=== PATIENT | female | born 1995 | race Hispanic/Latino ===

== ENCOUNTER 2019-03-28 00:08 | Emergency (ER) | payer OTHER ==
[2019-03-28 01:08] LABS: Absolute Lymphocytes (CBC) 3.4 K/uL (0.7-4.9); Basophils % 0.4 % (0-1.3); Hematocrit 36.3 % (36.0-45.0); Lymphocytes % 38.2 % (15.3-44.8); MPV 7.7 fL (7.6-11.3); RBC Red Blood Cell Count 3.89 M/uL (3.86-4.86)
[2019-03-28 01:30] LABS: BUN Blood Urea Nitrogen 11 mg/dL (7-18); Bicarbonate 26 mmol/L (21-32); Glucose Level 96 mg/dL (74-106); HCG, Quantitative 5800 mIU/mL (1-3); Potassium 3.5 mmol/L (3.5-5.1); Sodium Level 140 mmol/L (136-145)
--- NOTE | 2019-03-28 03:26 | ER ---
Nurse's Notes [facility] Name: Eugenia Turner Age: 23 yrs Sex: Female : 1995 Arrival Date: 03/28/2019 Time: 00:11 Bed 2 Private MD: Diagnosis: Threatened Presentation: 03/28 00:10 Presenting complaint: Patient states: Reports she started bleeding around 1 PM color ea was light, pt reports she tried contacting her OB at [facility] but was unable to, reported symptoms worsened and she started cramping and bleeding heavier dark red with clots. Transition of care: patient was not received from another setting of care. Onset of symptoms was March 28, 2019. Risk Assessment: Do you want to hurt yourself or someone else? Patient reports no desire to harm self or others. Initial Sepsis Screen: Does the patient meet any 2 criteria? No. Patient's initial sepsis screen is negative. Does the patient have a suspected source of infection? No. Patient's initial sepsis screen is negative. Care prior to arrival: None. 00:10 Method Of Arrival: Ambulatory ea 00:10 Acuity: CHHAYA 3 ea Triage Assessment: 00:10 General: Appears in no apparent distress. Behavior is calm, cooperative, appropriate ea for age. Pain: Complains of pain in pelvis. Neuro: Level of Consciousness is awake, alert, obeys commands, Oriented to person, place, time, situation. Respiratory: Airway is patent Respiratory effort is even, unlabored, Respiratory pattern is regular, symmetrical. : Reports vaginal bleeding that is bright red, with clots, moderate flow. Derm: Skin is pink, warm \T\ dry. 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 - Social history:: Smoking status: Patient/guardian denies using tobacco. - Ebola Screening: : No symptoms or risks identified at this time. Screenin:10 Abuse screen: Denies threats or abuse. Nutritional screening: No deficits noted. ea Tuberculosis screening: No symptoms or risk factors identified. Fall Risk None identified. Assessment: 00:10 Obstetrical Assessment: General assessment: awake and alert, skin warm and dry, ea respirations even and unlabored, Patient reports abdominal cramping. Neuro: Level of Consciousness is awake, alert, obeys commands, Oriented to person, place, time, situation. Cardiovascular: Patient's skin is warm and dry. Respiratory: Airway is patent Respiratory effort is even, unlabored, Respiratory pattern is regular, symmetrical. : Reports vaginal bleeding that is bright red, with clots, moderate flow. Derm: Skin is pink, warm \T\ dry. 01:34 Reassessment: Patient and/or family updated on plan of care and expected duration. Pain ea level reassessed. Patient is alert, oriented x 3, equal unlabored respirations, skin warm/dry/pink. 02:01 Reassessment: Patient and/or family updated on plan of care and expected duration. Pain ea level reassessed. Patient is alert, oriented x 3, equal unlabored respirations, skin warm/dry/pink. Awaiting on ultrasound. 02:38 Reassessment: Patient and/or family updated on plan of care and expected duration. Pain ea level reassessed. Patient is alert, oriented x 3, equal unlabored respirations, skin warm/dry/pink. Ultrasound at bedside. 02:48 Reassessment: Patient and/or family updated on plan of care and expected duration. Pain ea level reassessed. Patient is alert, oriented x 3, equal unlabored respirations, skin warm/dry/pink. Awaiting on ultrasound results. 03:33 Reassessment: Patient and/or family updated on plan of care and expected duration. Pain ea level reassessed. Patient is alert, oriented x 3, equal unlabored respirations, skin warm/dry/pink. Discharge instruction given to patient, verbalized the understanding of instruction. Pt left ED ambulatory tolerating well. Vital Signs: 00:10 BP 113 / 86; Pulse 90; Resp 18; Temp 97.8; Pulse Ox 100% on R/A; ea 01:12 BP 109 / 74; Pulse 71; Resp 18; Pulse Ox 100% on R/A; ea 01:37 Pulse 73; Resp 18; Pulse Ox 100% ; ea 01:39 BP 106 / 71; ea 02:49 BP 101 / 69; Pulse 65; Resp 18; Temp 97.7; Pulse Ox 100% ; ea 03:30 BP 108 / 78; Pulse 62; Resp 18; Pulse Ox 98% on R/A; ea Vitals: 00:31 Heart Tones: Doppler was used to obtain heart tones of 134 beats per jb5 minute, tones were found in the upper, left of the pelvis. ED Course: 00:10 Arm band placed on right wrist. Patient placed in an exam room, on a stretcher, on ea pulse oximetry. 00:10 Patient has correct armband on for positive identification. Bed in low position. Call ea light in reach. Side rails up X2. 00:11 Patient arrived in ED. ds1 00:16 Ashley Ramirez RN is Primary Nurse. ea 00:22 Juan Bella MD is Attending Physician. tw4 00:44 Abo/rh Typing Sent. jb5 00:44 Basic Metabolic Panel Sent. jb5 00:44 CBC with Diff Sent. jb5 00:44 HCG, Quantitative Sent. jb5 00:44 Inserted saline lock: 20 gauge in left antecubital area, using aseptic technique. Blood jb5 collected. 01:05 Triage completed. ea 02:42 1St Trimest Single 1St Fetus In Process Unspecified. EDMS 03:03 Assist provider with pelvic exam: Set up pelvic tray. Performed by Juan Bella MD jb5 Patient tolerated well. 03:30 IV discontinued, intact, bleeding controlled, No redness/swelling at site. Pressure ea dressing applied. Administered Medications: No medications were administered Outcome: 03:26 Discharge ordered by . tw4 03:33 Discharged to home ambulatory. ea 03:33 Condition: stable 03:33 Discharge instructions given to patient, Instructed on discharge instructions, follow up and referral plans. Demonstrated understanding of instructions, follow-up care. 03:35 Patient left the ED. ea Signatures: Dispatcher [employer] EDNC Martha Tolbert ds1 Ayesha Lai jb5 Ashley Ramirez, QUINTON RN Juan Jones MD MD tw4
--- NOTE | 2019-03-28 03:27 | EDPHYS ---
Physician Documentation [facility] Name: Eugenia Turner Age: 23 yrs Sex: Female : 1995 Arrival Date: 03/28/2019 Time: 00:11 Bed 2 Private MD: ED Physician Juan Bella HPI: 03/28 00:29 This 23 yrs old Female presents to ER via Unassigned with complaints of tw4 Vaginal Bleeding, + Preg <12wks. 00:29 The patient presents to the emergency department with vaginal bleeding, that is tw4 moderate, described as spotting, with clots. The estimated gestational age is 11 weeks. course: care: at a clinic, Leakage of Fluid: none appreciated, Ultrasound: Risk/complications: no obvious risks or complications are appreciated. Previous pregnancies: in previous pregnancies patient has had vaginal delivery. Associated signs and symptoms: Pertinent positives: abdominal pain, Pertinent negatives:. The patient has not experienced similar symptoms in the past. 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 - Social history:: Smoking status: Patient/guardian denies using tobacco. - Ebola Screening: : No symptoms or risks identified at this time. ROS: 00:29 Constitutional: Negative for fever, chills, and weight loss, Eyes: Negative for injury, tw4 pain, redness, and discharge, Cardiovascular: Negative for chest pain, palpitations, and edema, Respiratory: Negative for shortness of breath, cough, wheezing, and pleuritic chest pain, Abdomen/GI: Negative for abdominal pain, nausea, vomiting, diarrhea, and constipation, Back: Negative for injury and pain, MS/Extremity: Negative for injury and deformity, Skin: Negative for injury, rash, and discoloration. 00:29 : Positive for pelvic pain, vaginal bleeding, Negative for urinary symptoms, urinary frequency, small amounts, hematuria, flank pain, burning with urination, difficulty urinating, bladder incontinence, foul smelling urine. Exam: 05:12 Constitutional: This is a well developed, well nourished patient who is awake, alert, tw4 and in no acute distress. Head/Face: Normocephalic, atraumatic. Chest/axilla: Normal chest wall appearance and motion. Nontender with no deformity. No lesions are appreciated. Cardiovascular: Regular rate and rhythm with a normal S1 and S2. No gallops, murmurs, or rubs. Normal PMI, no JVD. No pulse deficits. Respiratory: Lungs have equal breath sounds bilaterally, clear to auscultation and percussion. No rales, rhonchi or wheezes noted. No increased work of breathing, no retractions or nasal flaring. Abdomen/GI: Soft, non-tender, with normal bowel sounds. No distension or tympany. No guarding or rebound. No evidence of tenderness throughout. Back: No spinal tenderness. No costovertebral tenderness. Full range of motion. 05:12 : Pelvic Exam: External exam: is normal, Speculum exam: mild bleeding, no cervicitis, os that is closed. Vital Signs: 00:10 BP 113 / 86; Pulse 90; Resp 18; Temp 97.8; Pulse Ox 100% on R/A; ea 01:12 BP 109 / 74; Pulse 71; Resp 18; Pulse Ox 100% on R/A; ea 01:37 Pulse 73; Resp 18; Pulse Ox 100% ; ea 01:39 BP 106 / 71; ea 02:49 BP 101 / 69; Pulse 65; Resp 18; Temp 97.7; Pulse Ox 100% ; ea 03:30 BP 108 / 78; Pulse 62; Resp 18; Pulse Ox 98% on R/A; ea MDM: 00:22 Patient medically screened. tw4 05:12 Data reviewed: vital signs, nurses notes. Data reviewed: lab test result(s), CBC, white tw4 blood cell count, hemoglobin, hematocrit, platelets, urinalysis. 05:12 Differential diagnosis: threatened Ab, inevitable Ab, complete Ab, ectopic . tw4 Data reviewed: lab test result(s), electrolytes, sodium, potassium, chloride, serum bicarbonate, BUN, creatinine, serum glucose, Rh: positive. Data reviewed: radiologic studies, ultrasound. Data interpreted: Pulse oximetry: Interpretation: normal. Counseling: I had a detailed discussion with the patient and/or guardian regarding: the historical points, exam findings, and any diagnostic results supporting the discharge/admit diagnosis, lab results, radiology results. Special discussion: I discussed with the patient/guardian in detail that at this point there is no indication for admission to the hospital. It is understood, however, that if the symptoms persist or worsen the patient needs to return immediately for re-evaluation. Based on the history and exam findings, there is no indication for further emergent testing or inpatient evaluation. I discussed with the patient/guardian the need to see the OB Gyne specialist for further evaluation of the symptoms. 03/28 00:22 Order name: Quantitative Hcg tw4 03/28 00:22 Order name: Abo/rh Typing; Complete Time: 05:12 tw4 03/28 05:12 Interpretation: Within normal limits. tw4 03/28 00:22 Order name: Basic Metabolic Panel tw4 03/28 00:22 Order name: CBC with Diff tw4 03/28 00:23 Order name: HCG, Quantitative EDMS 03/28 00:22 Order name: IV Saline Lock; Complete Time: 00:44 tw4 03/28 00:22 Order name: Labs collected and sent; Complete Time: 00:44 tw4 03/28 00:22 Order name: NPO; Complete Time: 01:17 tw4 03/28 02:42 Order name: 1St Trimest Single 1St Fetus EDNC Administered Medications: No medications were administered Disposition: 05:18 Chart complete. tw Disposition: 03/28/19 03:26 Discharged to Home. Impression: Threatened . - Condition is Stable. - Discharge Instructions: Threatened Miscarriage, First Trimester of , Threatened Miscarriage, [id number]. - Medication Reconciliation Form, Thank You Letter, Antibiotic Education, Prescription Opioid Use form. - Follow up: Private Physician; When: Upon discharge from the Emergency Department; Reason: Recheck today's complaints, Continuance of care. - Problem is new. - Symptoms have improved. Signatures: Dispatcher [employer] EDMS Ashley Ramirez RN RN ea Wadley, Terrence, MD MD tw4 Corrections: (The following items were deleted from the chart) 02:42 01:11 OB Limited+US.RAD[facility]. [facility] 03:35 03:26 03/28/2019 03:26 Discharged to Home. Impression: Threatened . Condition ea is Stable. Forms are Medication Reconciliation Form, Thank You Letter, Antibiotic Education, Prescription Opioid Use. Follow up: Private Physician; When: Upon discharge from the Emergency Department; Reason: Recheck today's complaints, Continuance of care. Problem is new. Symptoms have improved. tw4
[2019-03-28 06:07] VITALS: TEMP 97.7
[2019-03-28 06:08] VITALS: BP 108/78; O2SAT 98
--- NOTE | 2019-03-28 07:13 | RAD REPORT ---
EXAM DESCRIPTION: US - 1St Trimest Single 1St Fetus - 03/28/2019 2:42 am CLINICAL HISTORY: VAGINAL BLEEDING, , possible ectopic , pelvic pain, beta HCG 580 0 COMPARISON: None. TECHNIQUE: Transabdominal sonography performed FINDINGS: Preliminary findings from the examination were provided at the time of the study. A normal shaped gestational sac is identified in the fundal portion of the endometrial cavity. The yolk sac i s identified. There is no pole visible. No intrauterine mass or hematoma. Uterus is normal size with no myometrial abnormality. Both ovaries are visualized and normal in size. There is no adnexal mass or other finding that would indicate ectopic . No fluid or blood in the cul-de-sac. IMPRESSION: Intrauterine gestational sac with yolk sac. No pole at this time. No adnexal abnormality to suspect ectopic . Follow-up sonography can be performed if beta HCG values continue to rise. .
== END 2019-03-28 03:35 | disposition home or self-care (01) ==
LOC: ER 00:08
DX: O20.0 Threatened abortion (principal); Z3A.11 11 weeks gestation of pregnancy
CPT/HCPCS: 36415; 76801; 80048; 84702; 85025; 86900; 86901; 99284

== ENCOUNTER 2019-03-30 07:57 | Emergency (ER) | payer OTHER ==
--- OUTSIDE RECORDS SUMMARY | 2019-03-30 07:59 | XMS REPORT ---
:1995 [facility] Address [address] [place] [address] Dr. Sellers [address] [place] [id number] Care Team Providers Name Role Phone Unavailable Unavailable Unavailable Problems This patient has no known problems. Allergies, Adverse Reactions, Alerts This patient has no known allergies or adverse reactions. Medications This patient has no known medications.
[2019-03-30] MEDS ORDERED: ONDANSETRON 4 MG/2 ML VIAL ONE (08:26)
[2019-03-30] MEDS ORDERED: NA CHLORIDE 0.9% 1,000 ML ONE ×2 (08:26→09:00)
[2019-03-30] MEDS ORDERED: FENTANYL CITR 100 MCG/2 ML ONE (08:36)
[2019-03-30 08:56] LABS: Absolute Lymphocytes (CBC) 3.5 K/uL (0.7-4.9); Basophils % 0.3 % (0-1.3); Hematocrit 35.6 % (36.0-45.0); Lymphocytes % 36.1 % (15.3-44.8); MPV 7.6 fL (7.6-11.3); RBC Red Blood Cell Count 3.84 M/uL (3.86-4.86)
[2019-03-30 09:37] LABS: BUN Blood Urea Nitrogen 9 mg/dL (7-18); Bicarbonate 24 mmol/L (21-32); Glucose Level 108 mg/dL (74-106); HCG, Quantitative 3516 mIU/mL (1-3); Potassium 3.7 mmol/L (3.5-5.1); Sodium Level 138 mmol/L (136-145)
--- NOTE | 2019-03-30 12:09 | EDPHYS ---
Physician Documentation [facility] Name: Eugenia Turner Age: 23 yrs Sex: Female : 1995 Arrival Date: 03/30/2019 Time: 07:59 Bed 20 Private MD: ED Physician Geovany Hough HPI: 03/30 08:12 This 23 yrs old Female presents to ER via Ambulatory with complaints of jmm Vaginal Bleeding. 08:12 The patient presents with vaginal bleeding that is heavy, with clots. Onset: The jmm symptoms/episode began/occurred gradually, 2 day(s) ago. Modifying factors: The symptoms are alleviated by nothing, the symptoms are aggravated by nothing. This is a 23 year old female with no chronic medical conditions that presents to the ED with heavy vaginal bleeding and passing clots. Patient was diagnosed with threatened two days prior. Bleeding has increased. Patient also complains of pelvic pain. . 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 - Social history:: Smoking status: Patient/guardian denies using tobacco. - Ebola Screening: : Patient negative for fever greater than or equal to 101.5 degrees Fahrenheit, and additional compatible Ebola Virus Disease symptoms Patient denies exposure to infectious person Patient denies travel to an Ebola-affected area in the 21 days before illness onset No symptoms or risks identified at this time. ROS: 08:12 Constitutional: Negative for fever, chills, and weight loss, Cardiovascular: Negative jmm for chest pain, palpitations, and edema, Respiratory: Negative for shortness of breath, cough, wheezing, and pleuritic chest pain, Abdomen/GI: Negative for abdominal pain, nausea, vomiting, diarrhea, and constipation. 08:12 : Positive for vaginal bleeding. 08:12 All other systems are negative. Exam: 08:12 Constitutional: This is a well developed, well nourished patient who is awake, alert, jmm and in no acute distress. Head/Face: atraumatic. Eyes: EOMI, no conjunctival erythema appreciated ENT: Moist Mucus Membranes Neck: Trachea midline, Supple Chest/axilla: Normal chest wall appearance and motion. Cardiovascular: Regular rate and rhythm. No edema appreciated Respiratory: Normal respirations, no respiratory distress appreciated 08:12 MS/ Extremity: Moves all extremities, no obvious deformities appreciated, no edema noted to the lower extremities Neuro: Awake and alert, normal gait Psych: Behavior is normal, Mood is normal, Patient is cooperative and pleasant 08:12 Respiratory: the patient does not display signs of respiratory distress, Respirations: normal, Breath sounds: are clear throughout. 08:12 Abdomen/GI: Inspection: abdomen appears normal, Bowel sounds: normal, Palpation: abdomen is soft and non-tender. 08:12 : Pelvic Exam: Speculum exam: mild bleeding, blood clots in vaginal vault, tissue in vagina is seen. Vital Signs: 08:09 BP 100 / 67; Pulse 108; Resp 16; Temp 98.7(O); Pulse Ox 99% on R/A; Weight 74.39 kg; em Pain 9/10; 08:28 BP 84 / 61; Pulse 66; Resp 24; Pulse Ox 100% on R/A; em 08:30 BP 89 / 62; Pulse 74; Resp 25; Pulse Ox 100% on R/A; em 08:40 BP 97 / 65; Pulse 72; Resp 17; Pulse Ox 97% on R/A; Pain 9/10; em 09:00 BP 95 / 61; Pulse 64; Resp 18; Pulse Ox 99% on R/A; Pain 0/10; em 09:32 BP 91 / 61; Pulse 67; Resp 18; Pulse Ox 99% on R/A; Pain 0/10; em 10:10 BP 99 / 72; Pulse 68; Resp 16; Pulse Ox 100% on R/A; em 10:50 BP 90 / 61 LA Supine; Pulse 76; Resp 15; Pulse Ox 100% on R/A; dh3 10:52 BP 96 / 58 LA Sitting; Pulse 91; Resp 12; Pulse Ox 100% on R/A; dh3 10:54 BP 88 / 67 Standing; Pulse 105; Resp 16; Pulse Ox 100% on R/A; dh3 11:42 BP 100 / 62; Pulse 88; Resp 18; Pulse Ox 100% on R/A; Pain 0/10; em MDM: 08:12 Patient medically screened. [facility] 12:06 Data reviewed: vital signs, nurses notes. Counseling: I had a detailed discussion with shira the patient and/or guardian regarding: the historical points, exam findings, and any diagnostic results supporting the discharge/admit diagnosis, lab results, the need for outpatient follow up, to return to the emergency department if symptoms worsen or persist or if there are any questions or concerns that arise at home. 12:06 ED course: Previous US confirmed IUP. Pain is relieved in the ED. No active bleeding jmm appreciated. Patient states feeling much better H/H wnl. Patient advised to follow up with OB for reevaluation and otherwise given strict return precautions. patient understood and agrees with the plan of care. . 03/30 08:13 Order name: Quantitative Hcg; Complete Time: 09:56 [facility] 03/30 08:13 Order name: Basic Metabolic Panel; Complete Time: 09:56 [facility] 03/30 08:13 Order name: CBC with Diff; Complete Time: 09:31 [facility] 03/30 08:27 Order name: Type And Screen; Complete Time: 09:56 [facility] 03/30 11:38 Order name: Urine Dipstick--Ancillary (enter results) or 03/30 08:13 Order name: Urine Test (obtain specimen); Complete Time: 11:36 [facility] 03/30 08:13 Order name: IV Saline Lock; Complete Time: 08:18 [facility] 03/30 08:13 Order name: Labs collected and sent; Complete Time: 08:18 [facility] 03/30 11:38 Order name: Urine --Ancillary (enter results) or 03/30 08:13 Order name: NPO; Complete Time: 08:18 [facility] 03/30 08:13 Order name: Urine Dipstick-Ancillary (obtain specimen); Complete Time: 11:36 [facility] 03/30 10:40 Order name: Pelvic Exam Setup; Complete Time: 11:02 [facility] 03/30 10:47 Order name: Orthostatic Blood Pressure; Complete Time: 10:59 [facility] Administered Medications: 08:32 Drug: NS 0.9% 1000 ml Route: IV; Rate: 1 bolus; Site: right antecubital; em 08:56 Follow up: IV Status: Completed infusion; IV Intake: 1000ml em 08:32 Drug: Zofran 4 mg Route: IVP; Site: right antecubital; iw 08:40 Follow up: Response: No adverse reaction; Nausea is decreased em 08:41 Drug: fentaNYL (PF) 25 mcg {Note: RASS 0.} Route: IVP; Site: right antecubital; iw 08:56 Follow up: Response: No adverse reaction; Pain is decreased; RASS: Alert and Calm (0) em 09:02 Drug: NS 0.9% 1000 ml Route: IV; Rate: 1 bolus; Site: right antecubital; em 10:09 Follow up: IV Status: Completed infusion; IV Intake: 1000ml em Disposition: 16:39 Co-signature as Attending Physician, Geovany Hough MD I agree with the assessment and kdr plan of care. Disposition: 03/30/19 12:08 Discharged to Home. Impression: Incomplete spontaneous without complication. - Condition is Stable. - Discharge Instructions: Incomplete Miscarriage. - Medication Reconciliation Form, Thank You Letter, Antibiotic Education, Prescription Opioid Use, Work release form, Family Work Release form. - Follow up: Cornel Aguilar MD; When: 2 - 3 days; Reason: Recheck today's complaints, Continuance of care, Re-evaluation by your physician. Signatures: Dispatcher [employer] [facility] Geovany Hough MD MD kdr Mickail, Joel, PA PA [facility] Troy Kelly, FRETTED INSTRUMENT INSPECTOR FRETTED INSTRUMENT INSPECTOR em Alesha Sol, QUINTON RN iw Corrections: (The following items were deleted from the chart) 09:14 08:14 ABO/RH TYPING+BB.LAB.BRZ ordered. [facility] 12:21 12:08 03/30/2019 12:08 Discharged to Home. Impression: Incomplete spontaneous em without complication. Condition is Stable. Forms are Medication Reconciliation Form, Thank You Letter, Antibiotic Education, Prescription Opioid Use. Follow up: Cornel Aguilar; When: 2 - 3 days; Reason: Recheck today's complaints, Continuance of care, Re-evaluation by your physician. shira
--- NOTE | 2019-03-30 12:09 | ER ---
Nurse's Notes [facility] Name: Eugenia Turner Age: 23 yrs Sex: Female : 1995 Arrival Date: 03/30/2019 Time: 07:59 Bed 20 Private MD: Diagnosis: Incomplete spontaneous without complication Presentation: 03/30 08:06 Presenting complaint: Patient states: vaginal bleeding that started as spotting on em Monday, reports being 11 weeks , today started bleeding more with blood clots that were orange/brown, had US done yesterday and was told she was about 7 weeks gestation, denies fever, N/V. Transition of care: patient was not received from another setting of care. Onset of symptoms was March 27, 2019. Risk Assessment: Do you want to hurt yourself or someone else? Patient reports no desire to harm self or others. Initial Sepsis Screen: Does the patient meet any 2 criteria? No. Patient's initial sepsis screen is negative. Does the patient have a suspected source of infection? No. Patient's initial sepsis screen is negative. Care prior to arrival: None. 08:06 Method Of Arrival: Ambulatory em 08:12 Acuity: CHHAYA 3 iw 08:34 Acuity: CHHAYA 2 iw DISH UP PERSON: 08:09 LMP 12/07/2018 em 08:12 2, Living 1 [facility] Historical: - Allergies: 08:09 No Known Allergies; em - Home Meds: 08:09 Vitamin Oral [Active]; em - PMHx: 08:09 None; em - PSHx: 08:09 None; em - Immunization history:: Adult Immunizations up to date. - Social history:: Smoking status: Patient/guardian denies using tobacco. - Ebola Screening: : Patient negative for fever greater than or equal to 101.5 degrees Fahrenheit, and additional compatible Ebola Virus Disease symptoms Patient denies exposure to infectious person Patient denies travel to an Ebola-affected area in the 21 days before illness onset No symptoms or risks identified at this time. Screenin:08 Abuse screen: Denies threats or abuse. Nutritional screening: No deficits noted. em Tuberculosis screening: No symptoms or risk factors identified. Fall Risk None identified. Assessment: 08:08 General: Appears in no apparent distress. uncomfortable, well groomed, well developed, em well nourished, Behavior is cooperative, anxious, Denies fever. Pain: Complains of pain in suprapubic area Pain currently is 9 out of 10 on a pain scale. Pain began 2-3 days ago. Neuro: Level of Consciousness is awake, alert, obeys commands, Oriented to person, place, time, situation, Appropriate for age. Cardiovascular: Capillary refill < 3 seconds Patient's skin is warm and dry. Respiratory: Airway is patent Respiratory effort is even, unlabored, Respiratory pattern is regular, symmetrical. GI: Abdomen is flat, Patient currently denies nausea, vomiting. : Blood noted Reports pain in suprapubic area vaginal bleeding that is brown, with clots, since Monday Denies burning with urination. Derm: Skin is intact, is healthy with good turgor, Skin is pink, warm \T\ dry. Musculoskeletal: Capillary refill < 3 seconds, Range of motion: intact in all extremities. 08:24 Reassessment: became nauseous, clammy and diaphoretic, BP dropped to 80s systolic, em provider notified, new medication orders received. 08:40 Reassessment: nausea has improved, reports feeling better. em 09:00 Reassessment: Patient appears in no apparent distress at this time. Patient and/or em family updated on plan of care and expected duration. Pain level reassessed. Patient denies pain at this time. Patient states feeling better. Patient states symptoms have improved. 09:32 Reassessment: Patient appears in no apparent distress at this time. Patient and/or em family updated on plan of care and expected duration. Pain level reassessed. Patient is alert, oriented x 3, equal unlabored respirations, skin warm/dry/pink. Patient denies pain at this time. Patient states feeling better. 10:11 Reassessment: Patient appears in no apparent distress at this time. Patient and/or em family updated on plan of care and expected duration. Pain level reassessed. Patient is alert, oriented x 3, equal unlabored respirations, skin warm/dry/pink. Patient denies pain at this time. 11:15 Reassessment: Patient appears in no apparent distress at this time. Patient and/or em family updated on plan of care and expected duration. Pain level reassessed. Patient is alert, oriented x 3, equal unlabored respirations, skin warm/dry/pink. 11:30 Reassessment: ambulated to restroom with steady gait, denies dizziness, rechecked BP em after giving UA, BP 100/62, HR 88. Vital Signs: 08:09 BP 100 / 67; Pulse 108; Resp 16; Temp 98.7(O); Pulse Ox 99% on R/A; Weight 74.39 kg; em Pain 9/10; 08:28 BP 84 / 61; Pulse 66; Resp 24; Pulse Ox 100% on R/A; em 08:30 BP 89 / 62; Pulse 74; Resp 25; Pulse Ox 100% on R/A; em 08:40 BP 97 / 65; Pulse 72; Resp 17; Pulse Ox 97% on R/A; Pain 9/10; em 09:00 BP 95 / 61; Pulse 64; Resp 18; Pulse Ox 99% on R/A; Pain 0/10; em 09:32 BP 91 / 61; Pulse 67; Resp 18; Pulse Ox 99% on R/A; Pain 0/10; em 10:10 BP 99 / 72; Pulse 68; Resp 16; Pulse Ox 100% on R/A; em 10:50 BP 90 / 61 LA Supine; Pulse 76; Resp 15; Pulse Ox 100% on R/A; dh3 10:52 BP 96 / 58 LA Sitting; Pulse 91; Resp 12; Pulse Ox 100% on R/A; dh3 10:54 BP 88 / 67 Standing; Pulse 105; Resp 16; Pulse Ox 100% on R/A; dh3 11:42 BP 100 / 62; Pulse 88; Resp 18; Pulse Ox 100% on R/A; Pain 0/10; em ED Course: 07:59 Patient arrived in ED. mr 08:03 Ever Kelley PA is PHCP. jmm 08:03 Geovany Hough MD is Attending Physician. jmm 08:06 Troy Kelly LVN is Primary Nurse. em 08:08 Patient has correct armband on for positive identification. Placed in gown. Bed in low em position. Call light in reach. Pulse ox on. NIBP on. 08:09 Arm band placed on. em 08:12 Triage completed. iw 08:24 Inserted saline lock: 20 gauge in right antecubital area, using aseptic technique. em Blood collected. 08:24 Initial lab(s) drawn, by me, sent to lab. em 12:08 Cornel Aguilar MD is Referral Physician. [facility] 12:17 Assist provider with pelvic exam: Set up pelvic tray. Performed by Ever MCKEON em Specimens sent to lab. POC passed, sent to pathology, Patient tolerated well. IV discontinued, intact, bleeding controlled, No redness/swelling at site. Pressure dressing applied. Administered Medications: 08:32 Drug: NS 0.9% 1000 ml Route: IV; Rate: 1 bolus; Site: right antecubital; em 08:56 Follow up: IV Status: Completed infusion; IV Intake: 1000ml em 08:32 Drug: Zofran 4 mg Route: IVP; Site: right antecubital; iw 08:40 Follow up: Response: No adverse reaction; Nausea is decreased em 08:41 Drug: fentaNYL (PF) 25 mcg {Note: RASS 0.} Route: IVP; Site: right antecubital; iw 08:56 Follow up: Response: No adverse reaction; Pain is decreased; RASS: Alert and Calm (0) em 09:02 Drug: NS 0.9% 1000 ml Route: IV; Rate: 1 bolus; Site: right antecubital; em 10:09 Follow up: IV Status: Completed infusion; IV Intake: 1000ml em Intake: 08:56 IV: 1000ml; Total: 1000ml. em 10:09 IV: 1000ml; Total: 2000ml. em Outcome: 12:08 Discharge ordered by . m 12:20 Discharged to home ambulatory, with family. em 12:20 Condition: good 12:20 Discharge instructions given to patient, Instructed on discharge instructions, follow up and referral plans. Demonstrated understanding of instructions, follow-up care. 12:21 Patient left the ED. em Signatures: Ever Kelley PA PA jmm Rivera, Mary Robin, Troy, ACTIVITY LEADER ACTIVITY LEADER em Alesha Sol, QUINTON RN Zhane Dunbar [facility] Corrections: (The following items were deleted from the chart) 12:18 12:17 No provider procedures requiring assistance completed. em em 12:19 12:17 Assist provider with pelvic exam: Set up pelvic tray. Performed by Ever polk PA Specimens sent to lab. POC passed, sent to pathology, Patient tolerated well. em
[2019-03-30 12:35] LABS: Urine Blood 1+ (NEG); Urine Glucose NEGATIVE (NEG); Urine Protein NEGATIVE (NEG); Urine Specific Gravity 1.015 (1.005-1.030); Urine pH 6.5 (5.0-7.0)
[2019-03-30 12:37] VITALS: TEMP 98.7
[2019-03-30 12:45] VITALS: O2SAT 100
[2019-03-30 12:50] VITALS: BP 100/62
== END 2019-03-30 12:21 | disposition home or self-care (01) ==
LOC: ER 07:57
DX: O03.4 Incomplete spontaneous abortion without complication (principal)
CPT/HCPCS: 96361; 85025; 80048; 36415; 86900; 86850; 81025; 86901; 88305 ×2; 84702; 81003; 96375; 96374; 99284; J3010; J7030 ×2; J2405

== ENCOUNTER 2019-07-07 01:19 | Emergency (ER) | payer OTHER, SELFPAY ==
--- OUTSIDE RECORDS SUMMARY | 2019-07-07 01:22 | XMS REPORT ---
:1995 [facility] Address [address] [place] [address] Dr. Sellers [address] [place] [id number] Care Team Providers Name Role Phone Unavailable Unavailable Unavailable Problems This patient has no known problems. Allergies, Adverse Reactions, Alerts This patient has no known allergies or adverse reactions. Medications This patient has no known medications.
[2019-07-07] MEDS ORDERED: ONDANSETRON 4 MG/2 ML VIAL ONE (01:41)
[2019-07-07] MEDS ORDERED: NA CHLORIDE 0.9% 1,000 ML ONE (01:41)
[2019-07-07 02:08] LABS: Absolute Lymphocytes (CBC) 3.4 K/uL (0.7-4.9); Basophils % 0.4 % (0-1.3); Hematocrit 37.6 % (36.0-45.0); Lymphocytes % 38.8 % (15.3-44.8); MPV 7.6 fL (7.6-11.3); RBC Red Blood Cell Count 4.25 M/uL (3.86-4.86)
[2019-07-07 02:22] LABS: ALT/SGPT 16 U/L (12-78); AST/SGOT 11 U/L (15-37); Alkaline Phosphatase 102 U/L (45-117); BUN Blood Urea Nitrogen 12 mg/dL (7-18); Bicarbonate 25 mmol/L (21-32); Bilirubin Direct < 0.1 mg/dL (0-0.2); Bilirubin Total 0.2 mg/dL (0.2-1.0); Glucose Level 120 mg/dL (74-106); Lipase 109 U/L (73-393); Protein, Total 8.4 g/dL (6.4-8.2); Sodium Level 139 mmol/L (136-145)
[2019-07-07] MEDS ORDERED: NS KCL 20MEQ 1,000 ML IV ONE (02:49)
--- NOTE | 2019-07-07 05:57 | ER ---
Nurse's Notes [facility] Name: Eugenia Turner Age: 23 yrs Sex: Female : 1995 Arrival Date: 07/07/2019 Time: 01:22 Bed 6 Private MD: Diagnosis: Vomiting;Dehydration Presentation: 07/06 01:36 Chief complaint: Patient states: she started feeling weak, shaking, vomiting, denies bb fever. Coronavirus screen: The patient has NOT traveled to [place] in the past 14 days. Proceed with normal triage procedures. Ebola Screen: No symptoms or risks identified at this time. Initial Sepsis Screen: Does the patient meet any 2 criteria? No. Patient's initial sepsis screen is negative. Does the patient have a suspected source of infection? No. Patient's initial sepsis screen is negative. Risk Assessment: Do you want to hurt yourself or someone else? Patient reports no desire to harm self or others. 01:36 Method Of Arrival: Ambulatory bb 01:36 Acuity: CHHAYA 3 bb 01:47 Onset of symptoms was July 06, 2019. mg2 Triage Assessment: 01:59 General: Appears in no apparent distress. comfortable. Pain: Denies pain. GI: Reports mg2 vomiting. 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 - Social history:: Smoking status: Patient denies any tobacco usage or history of. Screenin:47 Abuse screen: Denies threats or abuse. Denies injuries from another. Nutritional mg2 screening: No deficits noted. Tuberculosis screening: No symptoms or risk factors identified. Fall Risk IV access (20 points). Assessment: 01:46 General: Appears in no apparent distress. comfortable, Behavior is calm, cooperative. mg2 Neuro: Level of Consciousness is awake, alert, obeys commands, Oriented to person, place, time, situation. Cardiovascular: Capillary refill < 3 seconds Patient's skin is warm and dry. Respiratory: Airway is patent Respiratory effort is even, unlabored, Respiratory pattern is regular, symmetrical. GI: Abdomen is non-distended, Reports vomiting. : No signs and/or symptoms were reported regarding the genitourinary system. EENT: No signs and/or symptoms were reported regarding the EENT system. Derm: Skin is intact, is healthy with good turgor, Skin is pink, warm \T\ dry. normal. Musculoskeletal: Circulation, motion, and sensation intact. Capillary refill < 3 seconds. 02:48 Reassessment: Patient appears in no apparent distress at this time. Patient and/or mg2 family updated on plan of care and expected duration. Pain level reassessed. Patient is alert, oriented x 3, equal unlabored respirations, skin warm/dry/pink. 03:58 Reassessment: Patient appears in no apparent distress at this time. Patient and/or mg2 family updated on plan of care and expected duration. Pain level reassessed. Patient is alert, oriented x 3, equal unlabored respirations, skin warm/dry/pink. 05:29 Reassessment: Patient appears in no apparent distress at this time. Patient denies pain mg2 at this time. Patient states feeling better. 06:02 Reassessment: Patient appears in no apparent distress at this time. Patient states mg2 feeling better. Vital Signs: 01:36 BP 111 / 79; Pulse 75; Resp 16 S; Temp 98.3(O); Pulse Ox 99% on R/A; Weight 71.21 kg bb (R); Height 5 ft. 5 in. (165.10 cm) (R); Pain 0/10; 02:48 BP 101 / 70; Pulse 71; Resp 18; Temp 97.4; Pulse Ox 100% on R/A; mg2 03:58 BP 96 / 65; Pulse 75; Resp 18; Pulse Ox 98% on R/A; mg2 05:29 BP 103 / 74; Pulse 72; Resp 18; Pulse Ox 99% on R/A; mg2 01:36 Body Mass Index 26.13 (71.21 kg, 165.10 cm) bb ED Course: 01:22 Patient arrived in ED. ag3 01:24 Mendel Ruiz PA is PHCP. jr8 01:24 Juan Bella MD is Attending Physician. jr8 01:25 Shreyas Dial, QUINTON is Primary Nurse. mg2 01:38 Triage completed. bb 01:39 Arm band placed on Patient placed in an exam room, on a stretcher, on pulse oximetry. bb Family accompanied patient. 01:48 Patient has correct armband on for positive identification. Pulse ox on. NIBP on. mg2 01:48 No provider procedures requiring assistance completed. mg2 01:51 Inserted saline lock: 20 gauge in right antecubital area, using aseptic technique. oe Blood collected. 06:03 IV discontinued, intact, bleeding controlled, No redness/swelling at site. Pressure mg2 dressing applied. Administered Medications: 01:59 Drug: NS 0.9% 1000 ml Route: IV; Rate: 1000 ml; Site: right antecubital; mg2 02:48 Follow up: Response: No adverse reaction; IV Status: Completed infusion; IV Intake: mg2 1000ml 01:59 Drug: Zofran (Ondansetron) 4 mg Route: IVP; Site: right antecubital; mg2 02:47 Follow up: Response: No adverse reaction mg2 02:47 Drug: NS 0.9% with KCl 20 mEq/L 1000 ml Route: IV; Rate: 500 ml/hr; Site: right mg2 antecubital; 06:03 Follow up: Response: No adverse reaction; IV Status: Completed infusion; IV Intake: mg2 1000ml Intake: 02:48 IV: 1000ml; Total: 1000ml. mg2 06:03 IV: 1000ml; Total: 2000ml. mg2 Outcome: 05:55 Discharge ordered by . tw4 06:03 Discharged to home ambulatory, with family. mg2 06:03 Condition: stable 06:03 Discharge instructions given to patient, family, Instructed on discharge instructions, follow up and referral plans. medication usage, Demonstrated understanding of instructions, follow-up care, medications, Prescriptions given X 1. 06:04 Patient left the ED. mg2 Signatures: Jackelin Avila, RN RN bb Mendel Ruiz PA PA jr8 Sree Swenson Terrence, MD MD tw4 Shreyas Dial RN RN mg2 Ilda Humphrey 3
--- NOTE | 2019-07-07 05:57 | EDPHYS ---
Physician Documentation [facility] Name: Eugenia Turner Age: 23 yrs Sex: Female : 1995 Arrival Date: 07/07/2019 Time: 01:22 Bed 6 Private MD: ED Physician Juan Bella HPI: 07/06 02:31 This 23 yrs old Female presents to ER via Ambulatory with complaints of jr8 Vomiting, Weakness. 02:31 The patient presents to the emergency department with nausea, vomiting. Onset: The jr8 symptoms/episode began/occurred acutely, today. Possible causes: unknown. The symptoms are aggravated by nothing. The symptoms are alleviated by nothing. Associated signs and symptoms: Pertinent positives: weakness and dizziness . Severity of symptoms: At their worst the symptoms were moderate in the emergency department the symptoms are unchanged. The patient has not experienced similar symptoms in the past. The patient has not recently seen a physician. 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 - Social history:: Smoking status: Patient denies any tobacco usage or history of. ROS: 02:31 Eyes: Negative for injury, pain, redness, and discharge, ENT: Negative for injury, jr8 pain, and discharge, Neck: Negative for injury, pain, and swelling, Cardiovascular: Negative for chest pain, palpitations, and edema, Respiratory: Negative for shortness of breath, cough, wheezing, and pleuritic chest pain, Back: Negative for injury and pain, MS/Extremity: Negative for injury and deformity, Skin: Negative for injury, rash, and discoloration, Neuro: Negative for headache, weakness, numbness, tingling, and seizure. 02:31 Abdomen/GI: Positive for nausea and vomiting, Negative for abdominal pain, diarrhea, constipation, abdominal cramps, abdominal distension, anorexia, dysphagia, hematemesis, black/tarry stool, rectal pain, rectal bleeding, bowel incontinence, flatulence. Exam: 02:31 Eyes: Pupils equal round and reactive to light, extra-ocular motions intact. Lids and jr8 lashes normal. Conjunctiva and sclera are non-icteric and not injected. Cornea within normal limits. Periorbital areas with no swelling, redness, or edema. ENT: Nares patent. No nasal discharge, no septal abnormalities noted. Tympanic membranes are normal and external auditory canals are clear. Oropharynx with no redness, swelling, or masses, exudates, or evidence of obstruction, uvula midline. Mucous membranes moist. Neck: Trachea midline, no thyromegaly or masses palpated, and no cervical lymphadenopathy. Supple, full range of motion without nuchal rigidity, or vertebral point tenderness. No Meningismus. Cardiovascular: Regular rate and rhythm with a normal S1 and S2. No gallops, murmurs, or rubs. Normal PMI, no JVD. No pulse deficits. Respiratory: Lungs have equal breath sounds bilaterally, clear to auscultation and percussion. No rales, rhonchi or wheezes noted. No increased work of breathing, no retractions or nasal flaring. Abdomen/GI: Soft, non-tender, with normal bowel sounds. No distension or tympany. No guarding or rebound. No evidence of tenderness throughout. Back: No spinal tenderness. No costovertebral tenderness. Full range of motion. Skin: Warm, dry with normal turgor. Normal color with no rashes, no lesions, and no evidence of cellulitis. MS/ Extremity: Pulses equal, no cyanosis. Neurovascular intact. Full, normal range of motion. Neuro: Awake and alert, GCS 15, oriented to person, place, time, and situation. Cranial nerves II-XII grossly intact. Motor strength 5/5 in all extremities. Sensory grossly intact. Cerebellar exam normal. Normal gait. 02:31 Constitutional: The patient appears alert, awake, obviously ill, uncomfortable. jr8 Vital Signs: 01:36 BP 111 / 79; Pulse 75; Resp 16 S; Temp 98.3(O); Pulse Ox 99% on R/A; Weight 71.21 kg bb (R); Height 5 ft. 5 in. (165.10 cm) (R); Pain 0/10; 02:48 BP 101 / 70; Pulse 71; Resp 18; Temp 97.4; Pulse Ox 100% on R/A; mg2 03:58 BP 96 / 65; Pulse 75; Resp 18; Pulse Ox 98% on R/A; mg2 05:29 BP 103 / 74; Pulse 72; Resp 18; Pulse Ox 99% on R/A; mg2 01:36 Body Mass Index 26.13 (71.21 kg, 165.10 cm) bb MDM: 01:27 Patient medically screened. jr8 02:33 Data reviewed: vital signs, nurses notes, lab test result(s). Data interpreted: Pulse jr8 oximetry: on room air is 99 %. Interpretation: normal. Counseling: I had a detailed discussion with the patient and/or guardian regarding: the historical points, exam findings, and any diagnostic results supporting the discharge/admit diagnosis, lab results, the need for outpatient follow up, a family practitioner, to return to the emergency department if symptoms worsen or persist or if there are any questions or concerns that arise at home. Response to treatment: the patient's symptoms have markedly improved after treatment, patient is well hydrated. 07/06 01:27 Order name: Basic Metabolic Panel; Complete Time: 0207/06 01:27 Order name: CBC with Diff; Complete Time: 07/06 01:27 Order name: Creatinine for Radiology; Complete Time: 07/06 01:27 Order name: Hepatic Function; Complete Time: 07/06 01:27 Order name: Lipase; Complete Time: 07/06 01:27 Order name: IV Saline Lock; Complete Time: 07/06 01:27 Order name: Labs collected and sent; Complete Time: 07/06 01:27 Order name: Urine Test (obtain specimen); Complete Time: 07/06 01:27 Order name: Urine Dipstick-Ancillary (obtain specimen); Complete Time: Administered Medications: 01:59 Drug: NS 0.9% 1000 ml Route: IV; Rate: 1000 ml; Site: right antecubital; mg2 02:48 Follow up: Response: No adverse reaction; IV Status: Completed infusion; IV Intake: mg2 1000ml 01:59 Drug: Zofran (Ondansetron) 4 mg Route: IVP; Site: right antecubital; mg2 02:47 Follow up: Response: No adverse reaction mg2 02:47 Drug: NS 0.9% with KCl 20 mEq/L 1000 ml Route: IV; Rate: 500 ml/hr; Site: right mg2 antecubital; 06:03 Follow up: Response: No adverse reaction; IV Status: Completed infusion; IV Intake: mg2 1000ml Disposition: 07:24 Co-signature as Attending Physician, Juan Bella MD I agree with the assessment and tw4 plan of care. Disposition: 07/07/19 05:55 Discharged to Home. Impression: Vomiting, Dehydration. - Condition is Stable. - Discharge Instructions: Dehydration, Adult, Nausea and Vomiting, Adult. - Prescriptions for promethazine 25 mg Oral Tablet - take 1 tablet by ORAL route every 6 hours As needed; 20 tablet. - Medication Reconciliation Form, Thank You Letter, Antibiotic Education, Prescription Opioid Use form. - Follow up: Private Physician; When: 2 - 3 days; Reason: Recheck today's complaints, Continuance of care, Re-evaluation by your physician. - Problem is new. - Symptoms have improved. Signatures: Dispatcher [employer] EDMS Jackelin Avila RN RN bb Mendel Ruiz PA PA jr8 Juan Bella MD MD tw4 Shreyas Dial RN RN mg2 Corrections: (The following items were deleted from the chart) 02:33 02:31 Eyes: Pupils equal round and reactive to light, extra-ocular motions intact. Lids jr8 and lashes normal. Conjunctiva and sclera are non-icteric and not injected. Cornea within normal limits. Periorbital areas with no swelling, redness, or edema. ENT: Nares patent. No nasal discharge, no septal abnormalities noted. Tympanic membranes are normal and external auditory canals are clear. Oropharynx with no redness, swelling, or masses, exudates, or evidence of obstruction, uvula midline. Mucous membranes moist. Neck: Trachea midline, no thyromegaly or masses palpated, and no cervical lymphadenopathy. Supple, full range of motion without nuchal rigidity, or vertebral point tenderness. No Meningismus. Cardiovascular: Regular rate and rhythm with a normal S1 and S2. No gallops, murmurs, or rubs. Normal PMI, no JVD. No pulse deficits. Respiratory: Lungs have equal breath sounds bilaterally, clear to auscultation and percussion. No rales, rhonchi or wheezes noted. No increased work of breathing, no retractions or nasal flaring. Abdomen/GI: Soft, non-tender, with normal bowel sounds. No distension or tympany. No guarding or rebound. No evidence of tenderness throughout. Back: No spinal tenderness. No costovertebral tenderness. Full range of motion. Skin: Warm, dry with normal turgor. Normal color with no rashes, no lesions, and no evidence of cellulitis. MS/ Extremity: Pulses equal, no cyanosis. Neurovascular intact. Full, normal range of motion. Neuro: Awake and alert, GCS 15, oriented to person, place, time, and situation. Cranial nerves II-XII grossly intact. Motor strength 5/5 in all extremities. Sensory grossly intact. Cerebellar exam normal. Normal gait. jr8 06:04 05:55 07/07/2019 05:55 Discharged to Home. Impression: Vomiting; Dehydration. Condition mg2 is Stable. Discharge Instructions: Dehydration, Adult, Nausea and Vomiting, Adult. Prescriptions for promethazine 25 mg Oral Tablet - take 1 tablet by ORAL route every 6 hours As needed; 20 tablet. and Forms are Medication Reconciliation Form, Thank You Letter, Antibiotic Education, Prescription Opioid Use. Follow up: Private Physician; When: 2 - 3 days; Reason: Recheck today's complaints, Continuance of care, Re-evaluation by your physician. Problem is new. Symptoms have improved. tw4
[2019-07-07 06:15] VITALS: TEMP 97.4
[2019-07-07 06:17] VITALS: BP 103/74; O2SAT 99
== END 2019-07-07 06:04 | disposition home or self-care (01) ==
LOC: ER 01:19
DX: E86.0 Dehydration (principal); R11.10 Vomiting, unspecified
CPT/HCPCS: 36415; 80048; 80076; 83690; 85025; 96361; 96374; 99284; J2405; J7030